=== PATIENT | female | born 1935 | race Caucasian/White ===

== ENCOUNTER 2019-04-05 12:53 | Emergency (ER) | payer MEDICARE, OTHER ==
[~2019-04-05] VITALS: Ht 160 cm; Wt 97.7 kg
[2019-04-05 13:45] VITALS: BP 153/86
[2019-04-05 13:46] LABS: BASOPHILS # (AUTO) 0.1 X10'3 (0-0.2); BASOPHILS % (AUTO) 0.9 % (0-1); EOSINOPHILS # (AUTO) 0.1 X10'3 (0-0.9); EOSINOPHILS % (AUTO) 1.2 % (0-6); HEMATOCRIT 43.3 % (35.0-45.0); HEMOGLOBIN 14.5 g/dl (12.0-16.0); LYMPHOCYTES # (AUTO) 1.2 X10'3 (1.1-4.8); LYMPHOCYTES % (AUTO) 14.7 % (21-51); MEAN CORPUSCULAR HEMOGLOBIN 30.7 PG (27.0-31.0); MEAN CORPUSCULAR HGB CONC 33.6 g/dL (33.0-36.5); MEAN CORPUSCULAR VOLUME 91.3 FL (78-98); MEAN PLATELET VOLUME 8.5 FL (7.4-10.4); MONOCYTES # (AUTO) 0.8 X10'3 (0-0.9); MONOCYTES % (AUTO) 9.3 % (2-12); NEUTROPHILS % (AUTO) 73.9 % (42-75); PLATELET COUNT 243 X10'3 (140-440); RED BLOOD COUNT 4.74 X10'6 (4.20-5.60); RED CELL DISTRIBUTION WIDTH 13.3 % (11.5-14.5); WHITE BLOOD COUNT 8.1 X10'3 (4.5-11.0)
[2019-04-05 13:56] LABS: ALANINE AMINOTRANSFERASE 18 U/L (12-78); ALBUMIN 3.6 G/DL (3.4-5.0); ALBUMIN/GLOBULIN RATIO 1.2 (1.1-1.5); ALKALINE PHOSPHATASE 109 IU/L (46-116); ANION GAP 9 (8-16); ASPARTATE AMINO TRANSFERASE 8 U/L (10-37); BLOOD UREA NITROGEN 18 MG/DL (7-18); BUN/CREATININE RATIO 24.3 (6.6-38.0); CALCIUM 8.9 MG/DL (8.5-10.1); CHLORIDE 110 MMOL/L (99-107); CREATININE 0.74 MG/DL (0.40-0.90); GLUCOSE 101 MG/DL (70-104); POTASSIUM 3.9 MMOL/L (3.5-5.1); SODIUM 145 MMOL/L (135-145); TOTAL PROTEIN 6.7 G/DL (6.4-8.2); eGFR 75 ML/MIN
[2019-04-05 14:04] LABS: PARTIAL THROMBOPLASTIN TIME 30 SECONDS (22-32)
[2019-04-05 14:59] LABS: CLARITY,URINE CLEAR (Clear); COLOR,URINE YELLOW (Yellow); GLUCOSE, URINE NEGATIVE (Neg); KETONES,URINE NEGATIVE (Neg); LEUKOCYTE ESTERASE ,URINE NEGATIVE (Neg); NITRITES, URINE NEGATIVE (Neg); OCCULT BLOOD,URINE MODERATE (Neg); PROTEIN,URINE NEGATIVE (Neg); UROBILINOGEN,URINE 0.2 E.U/dL (0.2-1.0)
[2019-04-05 15:03] LABS: UA COLLECTION TYPE NON-SPECIFIED
[2019-04-05 15:04] LABS: BACTERIA,URINE NONE SEEN /HPF (Neg); MUCUS STRANDS NONE SEEN /LPF (Neg); RBC,URINE 0-2 /HPF (0-2); SQUAMOUS EPITHELIAL CELL,UR FEW /LPF (FEW); WBC,URINE NONE SEEN /HPF (0-4)
[2019-04-05] MEDS ORDERED: enoxaparin 100mg/ml syringe SUBCUT ONE (15:40)
[2019-04-05] MEDS ORDERED: diltiazem 30mg tablet PO ONE (15:40)
[2019-04-05] MEDS ORDERED: ATOR20TA66 PO (15:55)
[2019-04-05] MEDS ORDERED: AMLO-93 PO (15:55)
[2019-04-05] MEDS ORDERED: LISI40TA4 PO (15:55)
[2019-04-05] MEDS ORDERED: DOXA4TAB3 PO (15:55)
[2019-04-05] MEDS ORDERED: UBIQ100C3 PO (15:55)
[2019-04-05] MEDS ORDERED: SOTA80TA73 PO (16:27)
[2019-04-05] MEDS ORDERED: APIX5TAB3 PO (16:27)
== END 2019-04-05 16:59 | disposition home or self-care (01) ==
LOC: ER 12:53
DX: I48.91 Unspecified atrial fibrillation (principal); R60.0 Localized edema; E78.00 Pure hypercholesterolemia, unspecified; I10 Essential (primary) hypertension; Z79.899 Other long term (current) drug therapy
CPT/HCPCS: 36415; 71045; 80053; 81001; 83880; 84145; 84484; 85025; 85610; 85730; 93005; 96372; 99284; J1650

== ENCOUNTER → 2020-06-25 | Outpatient (CLI) | payer MEDICARE, OTHER ==
[~2020-06-25] MED LIST: AMLO-93 PO; AMLO5TAB21 PO; APIX5TAB3 PO; ATOR20TA66 PO; DOXA4TAB3 PO; LISI40TA4 PO; MULT-645 PO; SOTA80TA73 PO; UBIQ100C3 PO
== END | disposition home or self-care (01) ==
LOC: VAS 08:52
PROVIDERS: ATTEND Internal Medicine Cardiovascular Disease
DX: I65.23 Occlusion and stenosis of bilateral carotid arteries (principal); I35.0 Nonrheumatic aortic (valve) stenosis; I70.0 Atherosclerosis of aorta; E04.2 Nontoxic multinodular goiter; J98.11 Atelectasis; J98.4 Other disorders of lung; I51.7 Cardiomegaly; M19.012 Primary osteoarthritis, left shoulder; M19.011 Primary osteoarthritis, right shoulder; M47.819 Spondylosis without myelopathy or radiculopathy, site unspecified; N28.1 Cyst of kidney, acquired; Z90.710 Acquired absence of both cervix and uterus
CPT/HCPCS: 71045; 71275; 74174; 93880; A9575

== ENCOUNTER 2020-06-28 14:39 | Day surgery (SDC) | payer MEDICARE, OTHER ==
[2020-06-24 12:27] LABS: BASOPHILS # (AUTO) 0.1 X10'3 (0-0.2); BASOPHILS % (AUTO) 1.2 % (0-1); EOSINOPHILS # (AUTO) 0.1 X10'3 (0-0.9); EOSINOPHILS % (AUTO) 1.2 % (0-6); HEMATOCRIT 46.9 % (35.0-45.0); HEMOGLOBIN 15.5 g/dl (12.0-16.0); LYMPHOCYTES # (AUTO) 1.6 X10'3 (1.1-4.8); LYMPHOCYTES % (AUTO) 19.8 % (21-51); MEAN CORPUSCULAR HEMOGLOBIN 30.5 PG (27.0-31.0); MEAN CORPUSCULAR VOLUME 92.6 FL (78-98); MEAN PLATELET VOLUME 8.6 FL (7.4-10.4); MONOCYTES # (AUTO) 0.7 X10'3 (0-0.9); MONOCYTES % (AUTO) 9.2 % (2-12); NEUTROPHILS # (AUTO) 5.5 X10'3 (1.8-7.7); NEUTROPHILS % (AUTO) 68.6 % (42-75); PLATELET COUNT 239 X10'3 (140-440); RED BLOOD COUNT 5.07 X10'6 (4.20-5.60); RED CELL DISTRIBUTION WIDTH 13.4 % (11.5-14.5)
[2020-06-24 12:30] LABS: ALBUMIN 3.8 G/DL (3.4-5.0); ANION GAP 7 (8-16); BLOOD UREA NITROGEN 13 MG/DL (7-18); BUN/CREATININE RATIO 16.9 (6.6-38.0); CALCIUM 9.9 MG/DL (8.5-10.1); CHLORIDE 110 MMOL/L (99-107); CREATININE 0.77 MG/DL (0.40-0.90); GLUCOSE 120 MG/DL (70-104); POTASSIUM 4.3 MMOL/L (3.5-5.1); SODIUM 145 MMOL/L (135-145); TOTAL CARBON DIOXIDE 28.3 MMOL/L (24-32); eGFR 72 ML/MIN
[2020-06-24 12:32] LABS: PARTIAL THROMBOPLASTIN TIME 30 SECONDS (22-32)
[2020-06-28] VITALS (8 sets, daily range): BP systolic 129–153; BP diastolic 52–88
[~2020-06-28] VITALS: Ht 157.5 cm; Wt 98.3 kg
[~2020-06-28 14:39] MED LIST changes: -AMLO5TAB21 PO; -MULT-645 PO; +iohexol 350 MG/ML 50ML vial IV ONE; +iohexol 350MG/ML 100ml bottle IV ONE
[2020-06-28] MEDS ORDERED: MULT-645 PO (15:00)
[2020-06-28] MEDS ORDERED: normal saline 1,000 ML IV SCH (15:10)
[2020-06-28] MEDS ORDERED: LORazepam 0.5 MG tablet PO PRN (15:10)
[2020-06-28] MEDS ORDERED: diphenhydrAMINE 25mg capsule PO PRN (15:10)
[2020-06-28] MEDS ORDERED: LIDOcaine/PRILOcaine 5gm cream TP ONE (15:35)
[2020-06-28] MEDS ORDERED: iohexol 350MG/ML 100ml bottle IV ONE (16:09)
[2020-06-28] MEDS ORDERED: heparin 1,000unit/ml 10ml vial 10 ML ONE (16:09)
[2020-06-28] MEDS ORDERED: nitroGLYCERIN-Tridil 50MG/D5W 250 ML IV ONE (16:09)
[2020-06-28] MEDS ORDERED: LIDOcaine 1% (10mg/ml)w/preservative injection 20ml MDV ONE (16:09)
[2020-06-28] MEDS ORDERED: verapamil 2.5 mg/ml inj IV ONE (16:09)
[2020-06-28] MEDS ORDERED: midazolam 2 mg/2 ml injection ONE (17:08)
[2020-06-28] MEDS ORDERED: fentaNYL/PF 50MCG/1 ML 2ML syringe ONE (17:08)
[2020-06-28] MEDS ORDERED: iohexol 350 MG/ML 50ML vial IV ONE (17:31)
[2020-06-28] MEDS ORDERED: HYDROcodone/acetaminophen 10/325mg tab PO PRN (18:00)
[2020-06-28] MEDS ORDERED: AMLO5TAB21 PO (18:00)
[2020-06-28] MEDS ORDERED: nitroGLYCERIN 0.4mg SUBLingual tab SL PRN (18:00)
[2020-06-28] MEDS ORDERED: HYDROcodone/acetaminophen 5mg/325mg tablet PO PRN (18:00)
[2020-06-28] MEDS ORDERED: OXAZEpam 15mg capsule PO PRN (18:00)
[2020-06-28] MEDS ORDERED: ondansetron/PF 4mg/2ml inj IV PRN (18:00)
[2020-06-28] MEDS ORDERED: APIX5TAB3 PO (18:01)
== END 2020-06-28 20:03 | disposition home or self-care (01) ==
LOC: SSTAY O 14:39
PROVIDERS: ATTEND Student in an Organized Health Care Education/Training Program
DX: I35.0 Nonrheumatic aortic (valve) stenosis (principal); I25.10 Atherosclerotic heart disease of native coronary artery without angina pectoris; I48.91 Unspecified atrial fibrillation; E78.5 Hyperlipidemia, unspecified; I65.23 Occlusion and stenosis of bilateral carotid arteries; I11.9 Hypertensive heart disease without heart failure; Z79.899 Other long term (current) drug therapy; Z79.01 Long term (current) use of anticoagulants
CPT/HCPCS: 36415; 80048; 85025; 85610; 85730; 93005; 93454; 99152; 99153; C1769; C1894; J1644; J2001; J2250; J3010; J7030; Q0163; Q9967; A4620; A5120; J3490

== ENCOUNTER 2020-07-12 10:45 | Outpatient (CLI) | payer MEDICARE, OTHER ==
[~2020-07-12 10:45] MED LIST changes: -AMLO-93 PO; +AMLO5TAB21 PO; +MULT-645 PO; -SOTA80TA73 PO; -UBIQ100C3 PO; -iohexol 350 MG/ML 50ML vial IV ONE; -iohexol 350MG/ML 100ml bottle IV ONE
== END 2020-07-12 23:59 | disposition home or self-care (01) ==
LOC: RT 10:45
PROVIDERS: ATTEND Internal Medicine Cardiovascular Disease
DX: I35.0 Nonrheumatic aortic (valve) stenosis (principal); R06.02 Shortness of breath; I65.29 Occlusion and stenosis of unspecified carotid artery
CPT/HCPCS: 94010; 94727; 94729

== ENCOUNTER 2020-08-26 15:14 | Outpatient (CLI) | payer MEDICARE, OTHER ==
[~2020-08-26] VITALS: Ht 157.5 cm; Wt 98.9 kg
[~2020-08-26 15:14] MED LIST changes: -MULT-645 PO
--- NOTE | 2020-08-26 19:04 | NUR ---
Juanita Mariee attended [facility] clinic for 30 day f/u. KCCQ12 and walk test completed. EKG performed in clinic.
[2020-08-26 19:07] VITALS: BP 129/61
[2020-08-26 19:09] VITALS: BP 135/70
== END 2020-08-26 23:59 | disposition home or self-care (01) ==
LOC: TAVR 15:14
PROVIDERS: ATTEND Internal Medicine Cardiovascular Disease
DX: I48.91 Unspecified atrial fibrillation (principal); I44.4 Left anterior fascicular block; Z48.812 Encounter for surgical aftercare following surgery on the circulatory system; Z95.2 Presence of prosthetic heart valve
CPT/HCPCS: 93005

== ENCOUNTER 2021-07-24 12:28 | Inpatient (IN) | payer MEDICARE, OTHER ==
[~2021-07-24] VITALS: Ht 160 cm; Wt 95.1 kg
[~2021-07-24 12:28] MED LIST changes: -AMLO5TAB21 PO; +ASPI-1071 PO; +CHLO25TA10 PO; +COR3.125T PO; +LEVO25TA7 PO; +LISI40TA13 PO; -LISI40TA4 PO
[2021-07-24] MEDS ORDERED: furosemide 10 MG/1 ML 10ml inj IV ONE (12:55)
[2021-07-24] MEDS ORDERED: ipratropium/albuterol 3ml nebule NEB ONE (12:55)
[2021-07-24 13:25] LABS: BASOPHILS # (AUTO) 0.1 X10'3 (0-0.2); BASOPHILS % (AUTO) 0.7 % (0-1); EOSINOPHILS # (AUTO) 0.1 X10'3 (0-0.9); EOSINOPHILS % (AUTO) 0.9 % (0-6); HEMATOCRIT 44.2 % (35.0-45.0); HEMOGLOBIN 14.9 g/dl (12.0-16.0); LYMPHOCYTES # (AUTO) 0.7 X10'3 (1.1-4.8); LYMPHOCYTES % (AUTO) 8.9 % (21-51); MEAN CORPUSCULAR HGB CONC 33.7 g/dL (33.0-36.5); MEAN CORPUSCULAR VOLUME 91.8 FL (78-98); MEAN PLATELET VOLUME 8.4 FL (7.4-10.4); MONOCYTES # (AUTO) 0.8 X10'3 (0-0.9); MONOCYTES % (AUTO) 10.3 % (2-12); NEUTROPHILS # (AUTO) 6.4 X10'3 (1.8-7.7); NEUTROPHILS % (AUTO) 79.2 % (42-75); PLATELET COUNT 234 X10'3 (140-440); RED BLOOD COUNT 4.82 X10'6 (4.20-5.60); RED CELL DISTRIBUTION WIDTH 13.6 % (11.5-14.5); WHITE BLOOD COUNT 8.1 X10'3 (4.5-11.0)
[2021-07-24 13:32] LABS: PARTIAL THROMBOPLASTIN TIME 32 SECONDS (22-32)
[2021-07-24 13:43] LABS: ALANINE AMINOTRANSFERASE 26 U/L (12-78); ALBUMIN 3.2 G/DL (3.4-5.0); ALBUMIN/GLOBULIN RATIO 0.9 (1.1-1.5); ALKALINE PHOSPHATASE 197 IU/L (46-116); ASPARTATE AMINO TRANSFERASE 22 U/L (10-37); BILIRUBIN,TOTAL 1.5 MG/DL (0.1-1.0); BLOOD UREA NITROGEN 18 MG/DL (7-18); BUN/CREATININE RATIO 18.9 (6.6-38.0); CALCIUM 9.1 MG/DL (8.5-10.1); CREATININE 0.95 MG/DL (0.40-0.90); GLUCOSE 156 MG/DL (70-104); POTASSIUM 3.3 MMOL/L (3.5-5.1); TOTAL CARBON DIOXIDE 33.4 MMOL/L (24-32); TOTAL PROTEIN 6.6 G/DL (6.4-8.2); eGFR 56 ML/MIN
[2021-07-24 13:49] LABS: ANION GAP 6 (8-16); CHLORIDE 102 MMOL/L (99-107); SODIUM 141 MMOL/L (135-145)
[2021-07-24] MEDS ORDERED: iohexol 350MG/ML 100ml bottle IV ONE (14:09)
[2021-07-24 14:11] LABS: D-DIMER 4.39 MG/L FEU (0-0.50)
[2021-07-24] MEDS ORDERED: CARV-49 PO (16:02)
[2021-07-24] MEDS ORDERED: FURO-149 PO (16:02)
[2021-07-24] MEDS ORDERED: LEVO25TA7 PO (16:02)
[2021-07-24] MEDS ORDERED: LISI20TA28 PO (16:03)
[2021-07-24] MEDS ORDERED: potassium CL 10mEq/100ml bag 100 ML IV PRN (16:25)
[2021-07-24] MEDS ORDERED: PERFLUTREN PROTEIN-A MICROSPHR (Optison) 0.22 MG/ML 3ML VIAL IV ONE (16:25)
[2021-07-24] MEDS ORDERED: mag hydrox/Alum hydrox/simeth 30ml oral suspension PO PRN (16:25)
[2021-07-24] MEDS ORDERED: acetaminophen 325mg tablet PO PRN ×2 (16:25)
[2021-07-24] MEDS ORDERED: acetaminophen 650mg rectal suppository RC PRN (16:25)
[2021-07-24] MEDS ORDERED: potassium Cl 20 mEq SR tablet PO PRN (16:25)
[2021-07-24] MEDS ORDERED: magnesium 4gm in 100ml NS 100 ML IV PRN (16:25)
[2021-07-24] MEDS ORDERED: magnesium hydroxide 30ml (MOM) UD suspension PO PRN (16:25)
[2021-07-24] MEDS ORDERED: ondansetron/PF 4mg/2ml inj IV PRN (16:25)
[2021-07-24] MEDS ORDERED: magnesium 2GM in 50ml NS 50 ML IV PRN (16:25)
[2021-07-24] MEDS ORDERED: magnesium Cl slow-release 64mg tablet PO PRN (16:25)
[2021-07-24] MEDS ORDERED: HYDROcodone/acetaminophen 5mg/325mg tablet PO PRN (16:25)
[2021-07-24] MEDS ORDERED: HYDROcodone/acetaminophen 10/325mg tab PO PRN (16:25)
[2021-07-24] MEDS ORDERED: bisacodyl 10mg suppository rectal RC PRN (16:25)
[2021-07-24 17:13] LABS: POTASSIUM 3.1 MMOL/L (3.5-5.1)
--- NOTE | 2021-07-24 19:08 | NUR ---
PT HAD DINNER TRAY DELIVERED. PT HAS NO COMPLAINTS AT PRESENT. HAS REQUESTED ICE CHIPS.
[2021-07-24] MEDS: furosemide 20 MG/2 ML vial IV SCH (20:48)
[2021-07-24] MEDS: atorvastatin 20mg tablet PO SCH (20:48)
[2021-07-24] MEDS: carvedilol 6.25mg tablet PO SCH (20:48)
[2021-07-24] MEDS: potassium Cl 20 mEq SR tablet PO PRN (20:49)
[2021-07-24] MEDS: K and/or MAG REPLACEMENT MC SCH (20:49)
[2021-07-24] MEDS: docusate sod 100mg capsule PO SCH (20:49)
[2021-07-24] MEDS ORDERED: temazepam 15mg capsule PO PRN (21:00)
[2021-07-24 23:30] VITALS: BP 127/55
[2021-07-25] MEDS: potassium Cl 20 mEq SR tablet PO PRN ×3 (00:31→20:17)
[2021-07-25 02:00] VITALS: BP 114/55
[2021-07-25 06:00] VITALS: BP 113/57
[2021-07-25 07:34] LABS: ALANINE AMINOTRANSFERASE 23 U/L (12-78); ALKALINE PHOSPHATASE 175 IU/L (46-116); ANION GAP 11 (8-16); ASPARTATE AMINO TRANSFERASE 21 U/L (10-37); BILIRUBIN,TOTAL 1.4 MG/DL (0.1-1.0); BLOOD UREA NITROGEN 15 MG/DL (7-18); BUN/CREATININE RATIO 17.2 (6.6-38.0); CALCIUM 8.8 MG/DL (8.5-10.1); CHLORIDE 103 MMOL/L (99-107); CREATININE 0.87 MG/DL (0.40-0.90); GLUCOSE 108 MG/DL (70-104); POTASSIUM 3.3 MMOL/L (3.5-5.1); SODIUM 143 MMOL/L (135-145); eGFR 62 ML/MIN
[2021-07-25] MEDS: K and/or MAG REPLACEMENT MC SCH ×2 (08:00→20:19)
[2021-07-25] MEDS: lisinopril 20mg tablet PO SCH (08:07)
[2021-07-25] MEDS: furosemide 20 MG/2 ML vial IV SCH ×2 (08:08→20:19)
[2021-07-25] MEDS: docusate sod 100mg capsule PO SCH ×2 (08:08→20:19)
[2021-07-25] MEDS: levoTHYROXINE 25mcg tablet PO SCH (08:08)
[2021-07-25] MEDS: carvedilol 6.25mg tablet PO SCH ×2 (08:08→20:17)
[2021-07-25 08:20] LABS: BASOPHILS # (AUTO) 0.1 X10'3 (0-0.2); BASOPHILS % (AUTO) 1.1 % (0-1); EOSINOPHILS # (AUTO) 0.1 X10'3 (0-0.9); EOSINOPHILS % (AUTO) 1.4 % (0-6); HEMATOCRIT 44.4 % (35.0-45.0); HEMOGLOBIN 14.9 g/dl (12.0-16.0); LYMPHOCYTES % (AUTO) 14.3 % (21-51); MEAN CORPUSCULAR HEMOGLOBIN 30.8 PG (27.0-31.0); MEAN CORPUSCULAR HGB CONC 33.7 g/dL (33.0-36.5); MEAN CORPUSCULAR VOLUME 91.6 FL (78-98); MEAN PLATELET VOLUME 8.3 FL (7.4-10.4); MONOCYTES % (AUTO) 13.6 % (2-12); NEUTROPHILS % (AUTO) 69.6 % (42-75); PLATELET COUNT 233 X10'3 (140-440); RED BLOOD COUNT 4.85 X10'6 (4.20-5.60); RED CELL DISTRIBUTION WIDTH 13.6 % (11.5-14.5); WHITE BLOOD COUNT 7.2 X10'3 (4.5-11.0)
[2021-07-25 10:53] VITALS: BP 159/73
[2021-07-25 11:00] VITALS: BP_SYST 106; BP_SYST 145; BP_DIAS 57; BP_DIAS 62
[2021-07-25 18:00] VITALS: BP 155/88
[2021-07-25] MEDS: atorvastatin 20mg tablet PO SCH (20:17)
[2021-07-25 22:00] VITALS: BP 127/48
[2021-07-26] MEDS: potassium Cl 20 mEq SR tablet PO PRN (00:20)
[2021-07-26 02:00] VITALS: BP 98/40
[2021-07-26 06:00] VITALS: BP 117/46
[2021-07-26] MEDS: carvedilol 6.25mg tablet PO SCH ×2 (07:39→20:23)
[2021-07-26] MEDS: lisinopril 20mg tablet PO SCH (07:39)
[2021-07-26] MEDS: docusate sod 100mg capsule PO SCH ×2 (07:41→20:00)
[2021-07-26] MEDS: furosemide 20 MG/2 ML vial IV SCH ×2 (07:41→20:23)
[2021-07-26] MEDS: levoTHYROXINE 25mcg tablet PO SCH (07:41)
[2021-07-26] MEDS: K and/or MAG REPLACEMENT MC SCH ×2 (07:44→20:00)
[2021-07-26 07:47] LABS: BASOPHILS # (AUTO) 0.1 X10'3 (0-0.2); BASOPHILS % (AUTO) 1.3 % (0-1); EOSINOPHILS # (AUTO) 0.1 X10'3 (0-0.9); EOSINOPHILS % (AUTO) 1.8 % (0-6); HEMATOCRIT 43.6 % (35.0-45.0); HEMOGLOBIN 14.5 g/dl (12.0-16.0); LYMPHOCYTES # (AUTO) 1.1 X10'3 (1.1-4.8); LYMPHOCYTES % (AUTO) 14.5 % (21-51); MEAN CORPUSCULAR HEMOGLOBIN 30.7 PG (27.0-31.0); MEAN CORPUSCULAR HGB CONC 33.4 g/dL (33.0-36.5); MEAN CORPUSCULAR VOLUME 92.1 FL (78-98); MEAN PLATELET VOLUME 8.6 FL (7.4-10.4); MONOCYTES # (AUTO) 1.1 X10'3 (0-0.9); NEUTROPHILS # (AUTO) 5.2 X10'3 (1.8-7.7); NEUTROPHILS % (AUTO) 67.4 % (42-75); PLATELET COUNT 203 X10'3 (140-440); RED BLOOD COUNT 4.73 X10'6 (4.20-5.60); RED CELL DISTRIBUTION WIDTH 14.1 % (11.5-14.5); WHITE BLOOD COUNT 7.7 X10'3 (4.5-11.0)
[2021-07-26 08:14] LABS: PLATELET ESTIMATE NORMAL; TOTAL CELLS COUNTED 100
[2021-07-26 08:26] LABS: ALANINE AMINOTRANSFERASE 23 U/L (12-78); ALBUMIN 2.9 G/DL (3.4-5.0); ALBUMIN/GLOBULIN RATIO 0.9 (1.1-1.5); ALKALINE PHOSPHATASE 169 IU/L (46-116); ANION GAP 6 (8-16); ASPARTATE AMINO TRANSFERASE 19 U/L (10-37); BILIRUBIN,TOTAL 1.3 MG/DL (0.1-1.0); BLOOD UREA NITROGEN 15 MG/DL (7-18); BUN/CREATININE RATIO 15.3 (6.6-38.0); CALCIUM 9.2 MG/DL (8.5-10.1); CHLORIDE 106 MMOL/L (99-107); CREATININE 0.98 MG/DL (0.40-0.90); GLUCOSE 105 MG/DL (70-104); POTASSIUM 3.8 MMOL/L (3.5-5.1); SODIUM 145 MMOL/L (135-145); TOTAL CARBON DIOXIDE 33.3 MMOL/L (24-32); eGFR 54 ML/MIN
[2021-07-26 11:00] VITALS: BP 113/49
--- NOTE | 2021-07-26 13:47 | NUR ---
relieving RN for lunch, pt is sitting on bed, talking on phone, resp even and unlabored,
[2021-07-26 15:00] VITALS: BP 106/52
[2021-07-26 18:00] VITALS: BP 146/59
--- NOTE | 2021-07-26 18:30 | NUR ---
Patient in room PCU 3014. I have received report from Bruce LARSEN and had the opportunity to ask questions and assume patient care.
[2021-07-26] MEDS: atorvastatin 20mg tablet PO SCH (20:23)
[2021-07-26 22:15] VITALS: BP 131/43
[2021-07-27 03:11] VITALS: BP 115/53
[2021-07-27 06:00] VITALS: BP 120/54
--- NOTE | 2021-07-27 06:28 | NUR ---
Problems reprioritized. Patient report given, questions answered & plan of care reviewed with Ely LARSEN.
[2021-07-27 07:08] LABS: BASOPHILS # (AUTO) 0.1 X10'3 (0-0.2); BASOPHILS % (AUTO) 1.5 % (0-1); EOSINOPHILS # (AUTO) 0.1 X10'3 (0-0.9); EOSINOPHILS % (AUTO) 1.9 % (0-6); HEMATOCRIT 44.1 % (35.0-45.0); HEMOGLOBIN 14.7 g/dl (12.0-16.0); LYMPHOCYTES # (AUTO) 1.3 X10'3 (1.1-4.8); LYMPHOCYTES % (AUTO) 17.5 % (21-51); MEAN CORPUSCULAR HEMOGLOBIN 30.8 PG (27.0-31.0); MEAN CORPUSCULAR HGB CONC 33.4 g/dL (33.0-36.5); MEAN PLATELET VOLUME 8.5 FL (7.4-10.4); MONOCYTES # (AUTO) 0.9 X10'3 (0-0.9); MONOCYTES % (AUTO) 12.3 % (2-12); NEUTROPHILS # (AUTO) 4.9 X10'3 (1.8-7.7); NEUTROPHILS % (AUTO) 66.8 % (42-75); PLATELET COUNT 189 X10'3 (140-440); RED BLOOD COUNT 4.79 X10'6 (4.20-5.60); RED CELL DISTRIBUTION WIDTH 13.9 % (11.5-14.5); WHITE BLOOD COUNT 7.3 X10'3 (4.5-11.0)
[2021-07-27] MEDS: carvedilol 6.25mg tablet PO SCH (07:14)
[2021-07-27] MEDS: levoTHYROXINE 25mcg tablet PO SCH (07:14)
[2021-07-27] MEDS: furosemide 20 MG/2 ML vial IV SCH ×2 (07:15→19:30)
[2021-07-27] MEDS: lisinopril 20mg tablet PO SCH (07:15)
[2021-07-27] MEDS: docusate sod 100mg capsule PO SCH ×2 (07:17→19:29)
[2021-07-27 07:31] LABS: ALANINE AMINOTRANSFERASE 17 U/L (12-78); ALKALINE PHOSPHATASE 157 IU/L (46-116); ASPARTATE AMINO TRANSFERASE 16 U/L (10-37); BILIRUBIN,TOTAL 1.1 MG/DL (0.1-1.0); BLOOD UREA NITROGEN 19 MG/DL (7-18); BUN/CREATININE RATIO 21.1 (6.6-38.0); CALCIUM 9.2 MG/DL (8.5-10.1); CHLORIDE 105 MMOL/L (99-107); GLUCOSE 103 MG/DL (70-104); POTASSIUM 3.5 MMOL/L (3.5-5.1); SODIUM 142 MMOL/L (135-145); TOTAL PROTEIN 5.9 G/DL (6.4-8.2); eGFR 60 ML/MIN
[2021-07-27 07:47] LABS: ANION GAP 7 (8-16); TOTAL CARBON DIOXIDE 30.2 MMOL/L (24-32)
[2021-07-27] MEDS: K and/or MAG REPLACEMENT MC SCH ×2 (08:00→20:00)
[2021-07-27 09:07] LABS: ALBUMIN 2.9 G/DL (3.4-5.0)
[2021-07-27 11:00] VITALS: BP 101/48
[2021-07-27] MEDS ORDERED: mag hydrox/Alum hydrox/simeth 30ml oral suspension PO PRN (12:20)
[2021-07-27 15:00] VITALS: BP 120/56
[2021-07-27 18:00] VITALS: BP 115/60
--- NOTE | 2021-07-27 18:32 | NUR ---
Problems reprioritized. Patient report given, questions answered & plan of care reviewed with Abbey LARSEN.
[2021-07-27] MEDS: carVEDilol 3.125mg tablet PO SCH (19:28)
[2021-07-27] MEDS: apixaban 5mg tablet PO SCH (19:29)
[2021-07-27] MEDS: atorvastatin 20mg tablet PO SCH (20:37)
[2021-07-27 22:00] VITALS: BP 123/51
[2021-07-28 02:00] VITALS: BP 114/59
--- NOTE | 2021-07-28 06:44 | NUR ---
Problems reprioritized. Patient report given, questions answered & plan of care reviewed with Alana LARSEN .
--- NOTE | 2021-07-28 06:49 | NUR ---
Patient in room PCU 3014. I have received report from Abbey LARSEN and had the opportunity to ask questions and assume patient care.
[2021-07-28 07:00] VITALS: BP 118/58
[2021-07-28 07:02] LABS: BASOPHILS # (AUTO) 0.1 X10'3 (0-0.2); BASOPHILS % (AUTO) 0.8 % (0-1); EOSINOPHILS # (AUTO) 0.2 X10'3 (0-0.9); EOSINOPHILS % (AUTO) 2.7 % (0-6); HEMATOCRIT 43.2 % (35.0-45.0); HEMOGLOBIN 14.6 g/dl (12.0-16.0); LYMPHOCYTES # (AUTO) 1.3 X10'3 (1.1-4.8); LYMPHOCYTES % (AUTO) 17.5 % (21-51); MEAN CORPUSCULAR HGB CONC 33.7 g/dL (33.0-36.5); MEAN PLATELET VOLUME 8.8 FL (7.4-10.4); MONOCYTES % (AUTO) 14.2 % (2-12); NEUTROPHILS # (AUTO) 4.7 X10'3 (1.8-7.7); NEUTROPHILS % (AUTO) 64.8 % (42-75); PLATELET COUNT 192 X10'3 (140-440); RED CELL DISTRIBUTION WIDTH 13.6 % (11.5-14.5); WHITE BLOOD COUNT 7.3 X10'3 (4.5-11.0)
[2021-07-28 07:39] LABS: ALANINE AMINOTRANSFERASE 18 U/L (12-78); ALBUMIN 2.9 G/DL (3.4-5.0); ALKALINE PHOSPHATASE 152 IU/L (46-116); ANION GAP 3 (8-16); ASPARTATE AMINO TRANSFERASE 18 U/L (10-37); BILIRUBIN,TOTAL 1.2 MG/DL (0.1-1.0); BLOOD UREA NITROGEN 19 MG/DL (7-18); BUN/CREATININE RATIO 22.1 (6.6-38.0); CHLORIDE 105 MMOL/L (99-107); CREATININE 0.86 MG/DL (0.40-0.90); GLUCOSE 96 MG/DL (70-104); POTASSIUM 3.5 MMOL/L (3.5-5.1); SODIUM 141 MMOL/L (135-145); TOTAL CARBON DIOXIDE 32.9 MMOL/L (24-32); TOTAL PROTEIN 5.8 G/DL (6.4-8.2); eGFR 63 ML/MIN
[2021-07-28] MEDS: K and/or MAG REPLACEMENT MC SCH (08:00)
[2021-07-28] MEDS: furosemide 20 MG/2 ML vial IV SCH (08:24)
[2021-07-28] MEDS: docusate sod 100mg capsule PO SCH (08:24)
[2021-07-28] MEDS: apixaban 5mg tablet PO SCH (08:24)
[2021-07-28] MEDS: levoTHYROXINE 25mcg tablet PO SCH (08:24)
[2021-07-28] MEDS: carVEDilol 3.125mg tablet PO SCH (08:25)
--- NOTE | 2021-07-28 10:17 | NUR ---
Initial: Pt presented with c/o SOB and pedal edema and admit for CHF with bilat pleural effusion. Pt s/p thoracentesis 07/25 with 800 mL fluid removed per report. Pt on a heart healthy diet with a 2 L fluid restriction and eating well for age with average 63% PO intake throughout [facility] 07/28, receiving routine bowel care. No nutrition intervention implemented at this time. Will continue to follow and make recommendations as appropriate. Recommendations: 1) Continue heart healthy diet with 2 L fluid restriction per MD; advance to regular diet as medically indicated in view of geriatric age 2) Routine bowel care 3) Daily scaled weights per rx Addendum: 07/28/21 at [address] Amended: Links added.
[2021-07-28] MEDS ORDERED: COR3.125T PO (12:04)
[2021-07-28] MEDS ORDERED: FURO-149 PO (12:04)
[2021-07-28] MEDS ORDERED: lisinopril 20mg tablet PO SCH (20:00)
== END 2021-07-28 13:50 | disposition home health service (06) | DRG 291 ==
LOC: ER 12:28 → ED HOLD 16:28 → EDBEDREQ 21:27 → PCU 3S 23:30
PROVIDERS: ADMIT Family Medicine; ATTEND Family Medicine
PROC: B32T1ZZ Computerized Tomography (CT Scan) of Left Pulmonary Artery using Low Osmolar Contrast (ICD-10-PCS; 2021-07-24)
PROC: B3201ZZ Computerized Tomography (CT Scan) of Thoracic Aorta using Low Osmolar Contrast (ICD-10-PCS; 2021-07-24)
PROC: B32S1ZZ Computerized Tomography (CT Scan) of Right Pulmonary Artery using Low Osmolar Contrast (ICD-10-PCS; 2021-07-24)
PROC: B4201ZZ Computerized Tomography (CT Scan) of Abdominal Aorta using Low Osmolar Contrast (ICD-10-PCS; 2021-07-24)
PROC: B4241ZZ Computerized Tomography (CT Scan) of Superior Mesenteric Artery using Low Osmolar Contrast (ICD-10-PCS; 2021-07-24)
PROC: B4281ZZ Computerized Tomography (CT Scan) of Bilateral Renal Arteries using Low Osmolar Contrast (ICD-10-PCS; 2021-07-24)
PROC: B42C1ZZ Computerized Tomography (CT Scan) of Pelvic Arteries using Low Osmolar Contrast (ICD-10-PCS; 2021-07-24)
PROC: B42H1ZZ Computerized Tomography (CT Scan) of Bilateral Lower Extremity Arteries using Low Osmolar Contrast (ICD-10-PCS; 2021-07-24)
PROC: B4211ZZ Computerized Tomography (CT Scan) of Celiac Artery using Low Osmolar Contrast (ICD-10-PCS; 2021-07-24)
PROC: 0W9B3ZZ Drainage of Left Pleural Cavity, Percutaneous Approach (ICD-10-PCS; principal; 2021-07-25)
DX: I11.0 Hypertensive heart disease with heart failure (principal); I50.23 Acute on chronic systolic (congestive) heart failure; N17.0 Acute kidney failure with tubular necrosis; I31.3 Pericardial effusion (noninflammatory); J91.8 Pleural effusion in other conditions classified elsewhere; I48.91 Unspecified atrial fibrillation; E87.6 Hypokalemia; E03.9 Hypothyroidism, unspecified; E78.00 Pure hypercholesterolemia, unspecified; Z20.822 Contact with and (suspected) exposure to COVID-19; I49.5 Sick sinus syndrome; R53.81 Other malaise; E78.5 Hyperlipidemia, unspecified; I25.10 Atherosclerotic heart disease of native coronary artery without angina pectoris; Z79.01 Long term (current) use of anticoagulants; Z85.820 Personal history of malignant melanoma of skin; Z90.711 Acquired absence of uterus with remaining cervical stump; Z95.0 Presence of cardiac pacemaker; Z95.2 Presence of prosthetic heart valve; Z90.49 Acquired absence of other specified parts of digestive tract; Z79.899 Other long term (current) drug therapy
CPT/HCPCS: 32555; 36415; 71045; 71275; 74177; 76700; 80053; 83735; 83880; 84132; 84439; 84443; 84480; 84484; 85007; 85025; 85379; 85610; 85730; 87081; 87635; 93005; 93306; 94640; 94760; 96374; 97116; 97161; 97530; 99285; G0378; J1940; Q9967

== ENCOUNTER 2021-10-04 08:28 | Day surgery (SDC) | payer MEDICARE, OTHER ==
[~2021-10-04] VITALS: Ht 157.5 cm; Wt 88.9 kg
[~2021-10-04 08:28] MED LIST changes: -ASPI-1071 PO; -CHLO25TA10 PO; -DOXA4TAB3 PO; +FURO-149 PO; -LISI40TA13 PO
[2021-10-04] MEDS ORDERED: albumin 25% 100mL bottle x 1 IV PRN (08:50)
[2021-10-04 08:53] VITALS: BP 113/64
[2021-10-04] MEDS ORDERED: LEVO50CA4 PO (09:01)
[2021-10-04] MEDS ORDERED: FURO-150 PO (09:01)
[2021-10-04] MEDS ORDERED: CARV3.122 PO (09:01)
[2021-10-04] MEDS ORDERED: POTA-192 PO (09:19)
[2021-10-04] MEDS ORDERED: SOTA80TA73 PO (09:19)
[2021-10-04 10:08] VITALS: BP 136/62
[2021-10-04 10:24] VITALS: BP 141/73
[2021-10-04 10:38] VITALS: BP 161/66
[2021-10-04 11:00] VITALS: BP 144/58
== END 2021-10-04 11:20 | disposition home or self-care (01) ==
LOC: SSTAY O 08:28
PROVIDERS: ATTEND Radiology Vascular & Interventional Radiology
DX: J90 Pleural effusion, not elsewhere classified (principal); I50.9 Heart failure, unspecified; I48.91 Unspecified atrial fibrillation; I10 Essential (primary) hypertension; I65.29 Occlusion and stenosis of unspecified carotid artery; Z85.828 Personal history of other malignant neoplasm of skin; Z85.820 Personal history of malignant melanoma of skin; Z20.822 Contact with and (suspected) exposure to COVID-19; Z90.49 Acquired absence of other specified parts of digestive tract; Z98.890 Other specified postprocedural states; Z95.0 Presence of cardiac pacemaker; Z79.899 Other long term (current) drug therapy; Z79.01 Long term (current) use of anticoagulants
CPT/HCPCS: 32555; 87635; C9803

== ENCOUNTER 2021-10-28 10:04 | Outpatient (CLI) | payer MEDICARE, OTHER ==
[~2021-10-28 10:04] MED LIST changes: +CARV3.122 PO; -COR3.125T PO; -FURO-149 PO; +FURO-150 PO; -LEVO25TA7 PO; +LEVO50CA4 PO; +POTA-192 PO; +SOTA80TA73 PO
[2021-10-28 11:21] LABS: BASOPHILS # (AUTO) 0.1 X10'3 (0-0.2); BASOPHILS % (AUTO) 1.1 % (0-1); EOSINOPHILS # (AUTO) 0.2 X10'3 (0-0.9); EOSINOPHILS % (AUTO) 2.5 % (0-6); HEMATOCRIT 46.1 % (35.0-45.0); HEMOGLOBIN 15.3 g/dl (12.0-16.0); LYMPHOCYTES # (AUTO) 1.2 X10'3 (1.1-4.8); LYMPHOCYTES % (AUTO) 15.8 % (21-51); MEAN CORPUSCULAR HGB CONC 33.1 g/dL (33.0-36.5); MEAN CORPUSCULAR VOLUME 90.6 FL (78-98); MONOCYTES # (AUTO) 0.7 X10'3 (0-0.9); MONOCYTES % (AUTO) 8.9 % (2-12); NEUTROPHILS # (AUTO) 5.3 X10'3 (1.8-7.7); NEUTROPHILS % (AUTO) 71.7 % (42-75); PLATELET COUNT 193 X10'3 (140-440); RED BLOOD COUNT 5.09 X10'6 (4.20-5.60); RED CELL DISTRIBUTION WIDTH 14.7 % (11.5-14.5); WHITE BLOOD COUNT 7.5 X10'3 (4.5-11.0)
[2021-10-28 11:27] LABS: APTT 30 SECONDS (22-32)
[2021-10-28 11:35] LABS: ALBUMIN 3.4 G/DL (3.4-5.0); ANION GAP 9 (8-16); BLOOD UREA NITROGEN 18 MG/DL (7-18); BUN/CREATININE RATIO 26.5 (6.6-38.0); CHLORIDE 109 MMOL/L (99-107); CREATININE 0.68 MG/DL (0.40-0.90); GLUCOSE 140 MG/DL (70-104); POTASSIUM 3.7 MMOL/L (3.5-5.1); SODIUM 148 MMOL/L (135-145); TOTAL CARBON DIOXIDE 29.7 MMOL/L (24-32); eGFR 82 ML/MIN
[2021-10-28 12:25] LABS: ALANINE AMINOTRANSFERASE 18 U/L (12-78); ALKALINE PHOSPHATASE 166 IU/L (46-116); ASPARTATE AMINO TRANSFERASE 16 U/L (10-37); BILIRUBIN,TOTAL 1.4 MG/DL (0.1-1.0); TOTAL PROTEIN 6.7 G/DL (6.4-8.2)
[2021-10-28 13:12] LABS: HEMOGLOBIN A1C 6.3 % (4.5-6.2)
== END 2021-10-28 23:59 | disposition home or self-care (01) ==
LOC: LAB 10:04
PROVIDERS: ATTEND Internal Medicine
DX: I10 Essential (primary) hypertension (principal); D53.9 Nutritional anemia, unspecified; E03.9 Hypothyroidism, unspecified; R73.9 Hyperglycemia, unspecified
CPT/HCPCS: 36415; 80053; 83036; 83880; 84443; 85025; 85610; 85730

== ENCOUNTER 2021-11-03 12:09 | Day surgery (SDC) | payer MEDICARE, OTHER ==
[~2021-11-03] VITALS: Ht 157.5 cm; Wt 89.6 kg
[2021-11-03] VITALS (12 sets, daily range): BP systolic 118–146; BP diastolic 51–88
[2021-11-03] MEDS ORDERED: LORazepam 0.5 MG tablet PO PRN (12:25)
[2021-11-03] MEDS ORDERED: normal saline 1,000 ML IV SCH (12:25)
[2021-11-03] MEDS ORDERED: diphenhydrAMINE 25mg capsule PO PRN (12:25)
[2021-11-03] MEDS ORDERED: FURO40TA4 PO (12:59)
[2021-11-03] MEDS ORDERED: METO-384 PO (12:59)
[2021-11-03] MEDS ORDERED: fentaNYL/PF 50MCG/1 ML 2ML syringe ONE (13:12)
[2021-11-03] MEDS ORDERED: iohexol 350MG/ML 100ml bottle IV ONE (13:12)
[2021-11-03] MEDS ORDERED: midazolam 1 mg/ML 2ml injection ONE (13:12)
[2021-11-03] MEDS ORDERED: LIDOcaine 1% (10mg/ml)w/preservative inj. 20ml MDV ONE (13:12)
[2021-11-03] MEDS ORDERED: nitroGLYCERIN-Tridil 50MG/D5W 250 ML IV ONE (13:12)
[2021-11-03] MEDS ORDERED: verapamil 2.5 mg/ml inj IV ONE (13:12)
[2021-11-03] MEDS ORDERED: heparin 1,000unit/ml 10ml vial 10 ML ONE (13:12)
[2021-11-03] MEDS ORDERED: iohexol 350 MG/ML 50ML vial IV ONE ×2 (14:18→14:22)
== END 2021-11-03 17:49 | disposition home or self-care (01) ==
LOC: SSTAY O 12:09
PROVIDERS: ATTEND Internal Medicine Interventional Cardiology
DX: R07.89 Other chest pain (principal); R06.02 Shortness of breath; I11.9 Hypertensive heart disease without heart failure; I48.91 Unspecified atrial fibrillation; I35.0 Nonrheumatic aortic (valve) stenosis; E78.5 Hyperlipidemia, unspecified; Z79.01 Long term (current) use of anticoagulants; Z79.899 Other long term (current) drug therapy
CPT/HCPCS: 93005; 93458; 93567; 99152; 99153; C1760; C1769; C1894; J1644; J2250; J3010; J3490; J7030; Q0163; Q9967; A4620; A5120; A6258

== ENCOUNTER 2021-11-14 09:12 | Emergency (ER) | payer MEDICARE, OTHER ==
[~2021-11-14] VITALS: Ht 157.5 cm; Wt 89.5 kg
[~2021-11-14 09:12] MED LIST changes: -CARV3.122 PO; +FURO40TA4 PO; +METO-384 PO; -SOTA80TA73 PO
[2021-11-14 10:01] LABS: BASOPHILS # (AUTO) 0.1 X10'3 (0-0.2); BASOPHILS % (AUTO) 0.9 % (0-1); EOSINOPHILS # (AUTO) 0.1 X10'3 (0-0.9); EOSINOPHILS % (AUTO) 1.8 % (0-6); HEMATOCRIT 46.7 % (35.0-45.0); HEMOGLOBIN 15.5 g/dl (12.0-16.0); LYMPHOCYTES % (AUTO) 12.5 % (21-51); MEAN CORPUSCULAR HEMOGLOBIN 29.7 PG (27.0-31.0); MEAN CORPUSCULAR HGB CONC 33.1 g/dL (33.0-36.5); MEAN CORPUSCULAR VOLUME 89.5 FL (78-98); MEAN PLATELET VOLUME 8.3 FL (7.4-10.4); MONOCYTES # (AUTO) 0.6 X10'3 (0-0.9); NEUTROPHILS % (AUTO) 76.8 % (42-75); PLATELET COUNT 219 X10'3 (140-440); RED BLOOD COUNT 5.22 X10'6 (4.20-5.60); RED CELL DISTRIBUTION WIDTH 14.3 % (11.5-14.5); WHITE BLOOD COUNT 7.9 X10'3 (4.5-11.0)
[2021-11-14 10:09] LABS: ALANINE AMINOTRANSFERASE 20 U/L (12-78); ALBUMIN 3.5 G/DL (3.4-5.0); ALBUMIN/GLOBULIN RATIO 1.1 (1.1-1.5); ALKALINE PHOSPHATASE 186 IU/L (46-116); ANION GAP 8 (8-16); ASPARTATE AMINO TRANSFERASE 16 U/L (10-37); BILIRUBIN,TOTAL 1.7 MG/DL (0.1-1.0); BLOOD UREA NITROGEN 16 MG/DL (7-18); BUN/CREATININE RATIO 21.1 (6.6-38.0); CALCIUM 9.6 MG/DL (8.5-10.1); CHLORIDE 104 MMOL/L (99-107); CREATININE 0.76 MG/DL (0.40-0.90); GLUCOSE 156 MG/DL (70-104); POTASSIUM 4.1 MMOL/L (3.5-5.1); SODIUM 141 MMOL/L (135-145); TOTAL CARBON DIOXIDE 29.5 MMOL/L (24-32); TOTAL PROTEIN 6.8 G/DL (6.4-8.2); eGFR 72 ML/MIN
[2021-11-14] MEDS ORDERED: furosemide 10 MG/1 ML 10ml inj IM ONE (11:00)
[2021-11-14 11:31] VITALS: BP 140/59
== END 2021-11-14 11:49 | disposition home or self-care (01) ==
LOC: ER 09:12
DX: I11.0 Hypertensive heart disease with heart failure (principal); I50.9 Heart failure, unspecified; E78.00 Pure hypercholesterolemia, unspecified; Z88.8 Allergy status to other drugs, medicaments and biological substances; Z79.899 Other long term (current) drug therapy; Z98.890 Other specified postprocedural states
CPT/HCPCS: 36415; 71045; 80053; 83880; 84484; 85025; 93005; 96372; 99285; J1940

== ENCOUNTER 2022-03-22 09:52 | Outpatient (CLI) | payer MEDICARE, OTHER ==
[~2022-03-22] VITALS: Ht 157.5 cm; Wt 88.5 kg
[2022-03-22 10:25] LABS: TOTAL HEMOGLOBIN 15.3 G/dl (12.0-16.0)
[2022-03-22] MEDS ORDERED: albuterol 2.5 MG/3 ML nebule NEB PRN (10:55)
== END 2022-03-22 23:59 | disposition home or self-care (01) ==
LOC: RT 09:52
PROVIDERS: ATTEND Internal Medicine
DX: R94.2 Abnormal results of pulmonary function studies (principal); J98.4 Other disorders of lung; I48.91 Unspecified atrial fibrillation; Z79.899 Other long term (current) drug therapy
CPT/HCPCS: 85018; 94060; 94727; 94729; 94760

== ENCOUNTER 2023-05-30 09:24 | Outpatient (CLI) | payer MEDICARE, OTHER ==
[~2023-05-30 09:24] MED LIST changes: +BUME1TAB8 PO; -FURO-150 PO; -FURO40TA4 PO; +UBID200C37 PO
[2023-05-30 10:07] LABS: BASOPHILS # (AUTO) 0.1 X10'3 (0-0.2); BASOPHILS % (AUTO) 0.6 % (0-1); EOSINOPHILS # (AUTO) 0.2 X10'3 (0-0.9); HEMATOCRIT 44.1 % (35.0-45.0); HEMOGLOBIN 14.9 g/dl (12.0-16.0); LYMPHOCYTES # (AUTO) 1.2 X10'3 (1.1-4.8); LYMPHOCYTES % (AUTO) 14.3 % (21-51); MEAN CORPUSCULAR HEMOGLOBIN 30.8 PG (27.0-31.0); MEAN CORPUSCULAR HGB CONC 33.7 g/dL (33.0-36.5); MEAN CORPUSCULAR VOLUME 91.4 FL (78-98); MEAN PLATELET VOLUME 8.4 FL (7.4-10.4); MONOCYTES # (AUTO) 0.7 X10'3 (0-0.9); NEUTROPHILS # (AUTO) 6.5 X10'3 (1.8-7.7); NEUTROPHILS % (AUTO) 75.1 % (42-75); PLATELET COUNT 271 X10'3 (140-440); RED BLOOD COUNT 4.82 X10'6 (4.20-5.60); RED CELL DISTRIBUTION WIDTH 13.1 % (11.5-14.5); WHITE BLOOD COUNT 8.6 X10'3 (4.5-11.0)
[2023-05-30 10:14] LABS: APTT 31 SECONDS (22-32); INR 1.1 INR; PROTHROMBIN TIME 11.5 SECONDS (9.0-12.0)
[2023-05-30 10:49] LABS: ALANINE AMINOTRANSFERASE 27 U/L (12-78); ALBUMIN 3.6 G/DL (3.4-5.0); ALKALINE PHOSPHATASE 176 IU/L (46-116); ANION GAP 5 (8-16); ASPARTATE AMINO TRANSFERASE 21 U/L (10-37); BILIRUBIN,TOTAL 1.1 MG/DL (0.1-1.0); BLOOD UREA NITROGEN 19 MG/DL (7-18); BUN/CREATININE RATIO 18.8 (10.0-20.0); CALCIUM 9.8 MG/DL (8.5-10.1); CHLORIDE 104 MMOL/L (99-107); CREATININE 1.01 MG/DL (0.40-0.90); GLUCOSE 145 MG/DL (70-104); POTASSIUM 3.6 MMOL/L (3.5-5.1); PRO BRAIN NATRIURETIC PEPTIDE 3775 PG/ML (0-450); SODIUM 141 MMOL/L (135-145); TOTAL CARBON DIOXIDE 32.5 MMOL/L (24-32); TOTAL PROTEIN 7.3 G/DL (6.4-8.2); eGFR 52 ML/MIN
[2023-05-30] MEDS ORDERED: IODIXANOL 320 MG/ML INFUS..BTL 100ML IV ONE (11:03)
== END 2023-05-30 23:59 | disposition home or self-care (01) ==
LOC: RAD 09:24
PROVIDERS: ATTEND Internal Medicine Cardiovascular Disease
DX: N28.1 Cyst of kidney, acquired (principal); K57.30 Diverticulosis of large intestine without perforation or abscess without bleeding; I70.0 Atherosclerosis of aorta; I25.3 Aneurysm of heart; I51.7 Cardiomegaly; M47.815 Spondylosis without myelopathy or radiculopathy, thoracolumbar region; R59.9 Enlarged lymph nodes, unspecified; I35.0 Nonrheumatic aortic (valve) stenosis; R06.02 Shortness of breath; Z90.6 Acquired absence of other parts of urinary tract; Z90.49 Acquired absence of other specified parts of digestive tract; Z95.2 Presence of prosthetic heart valve
CPT/HCPCS: 36415; 71275; 74174; 75572; 80053; 83880; 85025; 85610; 85730; J3490; Q9967

== ENCOUNTER 2023-06-07 10:25 | Day surgery (SDC) | payer MEDICARE, OTHER ==
[2023-06-07] VITALS (8 sets, daily range): BP systolic 127–152; BP diastolic 41–54; PULSE 70–84; RESP 14–17; TEMP 98; O2SAT 95–99
[~2023-06-07] VITALS: Ht 157.5 cm; Wt 93.9 kg
[2023-06-07] MEDS ORDERED: diphenhydrAMINE 25mg capsule PO PRN (11:10)
[2023-06-07] MEDS ORDERED: normal saline 1,000 ML IV SCH (11:10)
[2023-06-07] MEDS ORDERED: LORazepam 0.5 MG tablet PO PRN (11:10)
[2023-06-07 11:27] LABS: BASOPHILS # (AUTO) 0.1 X10'3 (0-0.2); BASOPHILS % (AUTO) 0.9 % (0-1); EOSINOPHILS # (AUTO) 0.2 X10'3 (0-0.9); EOSINOPHILS % (AUTO) 1.8 % (0-6); HEMATOCRIT 44.4 % (35.0-45.0); HEMOGLOBIN 14.7 g/dl (12.0-16.0); LYMPHOCYTES # (AUTO) 1.1 X10'3 (1.1-4.8); LYMPHOCYTES % (AUTO) 12.6 % (21-51); MEAN CORPUSCULAR HEMOGLOBIN 30.5 PG (27.0-31.0); MEAN CORPUSCULAR HGB CONC 33.1 g/dL (33.0-36.5); MEAN CORPUSCULAR VOLUME 91.9 FL (78-98); MEAN PLATELET VOLUME 8.4 FL (7.4-10.4); MONOCYTES # (AUTO) 0.8 X10'3 (0-0.9); MONOCYTES % (AUTO) 8.8 % (2-12); NEUTROPHILS # (AUTO) 6.7 X10'3 (1.8-7.7); NEUTROPHILS % (AUTO) 75.9 % (42-75); PLATELET COUNT 204 X10'3 (140-440); RED BLOOD COUNT 4.83 X10'6 (4.20-5.60); RED CELL DISTRIBUTION WIDTH 13.6 % (11.5-14.5); WHITE BLOOD COUNT 8.8 X10'3 (4.5-11.0)
[2023-06-07 11:38] LABS: ALBUMIN 3.8 G/DL (3.4-5.0); ANION GAP 7 (8-16); BLOOD UREA NITROGEN 17 MG/DL (7-18); BUN/CREATININE RATIO 19.8 (10.0-20.0); CALCIUM 9.7 MG/DL (8.5-10.1); CHLORIDE 104 MMOL/L (99-107); CREATININE 0.86 MG/DL (0.40-0.90); GLUCOSE 118 MG/DL (70-104); POTASSIUM 3.9 MMOL/L (3.5-5.1); SODIUM 143 MMOL/L (135-145); TOTAL CARBON DIOXIDE 32.2 MMOL/L (24-32); eCRCL 37 ML/MIN; eGFR 63 ML/MIN
[2023-06-07] MEDS ORDERED: LIDOcaine 1% (10mg/ml)w/preservative inj. 20ml MDV ONE (13:16)
[2023-06-07] MEDS ORDERED: midazolam 1 mg/ML 2ml injection ONE (13:16)
[2023-06-07] MEDS ORDERED: fentaNYL/PF 50MCG/1 ML 2ML syringe ONE (13:16)
[2023-06-07] MEDS ORDERED: heparin 1,000unit/ml 10ml vial 10 ML ONE (13:17)
[2023-06-07] MEDS ORDERED: iohexol 350MG/ML 100ml bottle IV ONE (13:17)
[2023-06-07] MEDS ORDERED: iohexol 350 MG/ML 50ML vial IV ONE (14:43)
[2023-06-07] MEDS ORDERED: HYDROcodone/acetaminophen 10/325mg tab PO PRN (15:45)
[2023-06-07] MEDS ORDERED: HYDROcodone/acetaminophen 5mg/325mg tablet PO PRN (15:45)
[2023-06-11 07:01] LABS: ISTAT HGB MIX 12.9 g/dl (12.0-16.0); ISTAT Hct MIX 38 %PCV (35-45); ISTAT O2 SATURATION MIX VENOUS 64 % (60-80); ISTAT SOURCE BLNK
[2023-06-11 07:02] LABS: ISTAT HGB ART 12.6 g/dl (12.0-16.0); ISTAT Hct ART 37 %PCV (35-45); ISTAT O2 SATURATION ARTERIAL 93 % (95-98); ISTAT SOURCE BLNK
== END 2023-06-07 17:30 | disposition home or self-care (01) ==
LOC: SSTAY O 10:25
PROVIDERS: ATTEND Internal Medicine Cardiovascular Disease
DX: I35.0 Nonrheumatic aortic (valve) stenosis (principal); E03.9 Hypothyroidism, unspecified; E78.5 Hyperlipidemia, unspecified; I50.9 Heart failure, unspecified; I48.0 Paroxysmal atrial fibrillation; Z79.01 Long term (current) use of anticoagulants; Z79.890 Hormone replacement therapy; Z79.899 Other long term (current) drug therapy; Z91.041 Radiographic dye allergy status
CPT/HCPCS: 36415; 80048; 82803; 85014; 85025; 85610; 93005; 93460; 93567; 99152; 99153; J1644; J2250; J3010; J3490; J7030; Q0163; Q9967; A6258; C1751; C1760

== ENCOUNTER 2024-08-26 15:06 | Emergency (ER) | payer MEDICARE, OTHER ==
[~2024-08-26] VITALS: Ht 157.5 cm; Wt 96.4 kg
[2024-08-26 15:49] LABS: BASOPHILS # (AUTO) 0.1 X10'3 (0-0.2); BASOPHILS % (AUTO) 0.8 % (0-1); EOSINOPHILS # (AUTO) 0.2 X10'3 (0-0.9); EOSINOPHILS % (AUTO) 2.2 % (0-6); HEMATOCRIT 44.3 % (35.0-45.0); HEMOGLOBIN 14.9 g/dl (12.0-16.0); LYMPHOCYTES # (AUTO) 1.2 X10'3 (1.1-4.8); LYMPHOCYTES % (AUTO) 14.2 % (21-51); MEAN CORPUSCULAR HEMOGLOBIN 30.3 PG (27.0-31.0); MEAN CORPUSCULAR HGB CONC 33.6 g/dL (33.0-36.5); MEAN CORPUSCULAR VOLUME 90.2 FL (78-98); MEAN PLATELET VOLUME 8.7 FL (7.4-10.4); MONOCYTES # (AUTO) 0.8 X10'3 (0-0.9); MONOCYTES % (AUTO) 9.4 % (2-12); NEUTROPHILS # (AUTO) 6.1 X10'3 (1.8-7.7); NEUTROPHILS % (AUTO) 73.4 % (42-75); PLATELET COUNT 191 X10'3 (140-440); WHITE BLOOD COUNT 8.4 X10'3 (4.5-11.0)
[2024-08-26 16:08] LABS: ALANINE AMINOTRANSFERASE 20 U/L (12-78); ALBUMIN 3.6 G/DL (3.4-5.0); ALBUMIN/GLOBULIN RATIO 1.2 (1.1-1.5); ALKALINE PHOSPHATASE 171 IU/L (46-116); ANION GAP 6 (8-16); ASPARTATE AMINO TRANSFERASE 13 U/L (10-37); BILIRUBIN,TOTAL 0.9 MG/DL (0.1-1.0); BLOOD UREA NITROGEN 15 MG/DL (7-18); CALCIUM 9.6 MG/DL (8.5-10.1); CHLORIDE 108 MMOL/L (99-107); CREATININE 0.79 MG/DL (0.40-0.90); GLUCOSE 114 MG/DL (70-104); LIPASE 56 U/L (16-77); POTASSIUM 4.5 MMOL/L (3.5-5.1); SODIUM 142 MMOL/L (135-145); TOTAL CARBON DIOXIDE 28.4 MMOL/L (24-32); TOTAL PROTEIN 6.5 G/DL (6.4-8.2); eCRCL 40 ML/MIN; eGFR 69 ML/MIN
[2024-08-26] MEDS ORDERED: morphine 4 MG/ML inj SYRINge IV ONE (17:15)
[2024-08-26] MEDS ORDERED: ondansetron/PF 4mg/2ml inj IV ONE (17:15)
[2024-08-26 17:31] LABS: BILIRUBIN,URINE NEGATIVE (Neg); CLARITY,URINE CLEAR (Clear); COLOR,URINE YELLOW (Yellow); GLUCOSE, URINE NEGATIVE (Neg); KETONES,URINE NEGATIVE (Neg); LEUKOCYTE ESTERASE ,URINE NEGATIVE (Neg); NITRITES, URINE NEGATIVE (Neg); OCCULT BLOOD,URINE TRACE-INTACT (Neg); PROTEIN,URINE NEGATIVE (Neg); UROBILINOGEN,URINE 0.2 E.U/dL (0.2-1.0)
[2024-08-26 17:32] LABS: UA COLLECTION TYPE NON-SPECIFIED
[2024-08-26 17:45] LABS: SQUAMOUS EPITHELIAL CELL,UR MANY /LPF (FEW)
[2024-08-26 17:49] LABS: BACTERIA,URINE 1+ /HPF (Neg); RBC,URINE 0-2 /HPF (0-2); WBC,URINE NONE SEEN /HPF (0-4)
[2024-08-26] MEDS ORDERED: PRED50TA PO (18:31)
[2024-08-26] MEDS: ketorolac trometh 15mg/ml vial 15 MG/ML ML IV ONE (18:34)
[2024-08-26] MEDS: cloNIDine 0.1 mg tablet PO ONE (18:46)
[2024-08-26 18:49] VITALS: BP 204/91; PULSE 72; RESP 16; TEMP 98.6; O2SAT 97
== END 2024-08-26 18:57 | disposition home or self-care (01) ==
LOC: ER 15:06
DX: M54.50 Low back pain, unspecified (principal); I11.0 Hypertensive heart disease with heart failure; I50.9 Heart failure, unspecified; E78.00 Pure hypercholesterolemia, unspecified; Z90.49 Acquired absence of other specified parts of digestive tract
CPT/HCPCS: 36415; 74176; 80053; 81001; 83690; 85025; 96374; 99285; J1885

== ENCOUNTER 2024-11-19 09:36 | Emergency (ER) | payer MEDICARE, OTHER ==
[~2024-11-19] VITALS: Ht 165.1 cm; Wt 96.0 kg
[~2024-11-19 09:36] MED LIST changes: -LEVO50CA4 PO; +LEVO50CA5 PO; +PRED50TA PO
[2024-11-19 10:21] LABS: BASOPHILS # (AUTO) 0.1 X10'3 (0-0.2); BASOPHILS % (AUTO) 1.2 % (0-1); EOSINOPHILS # (AUTO) 0.3 X10'3 (0-0.9); EOSINOPHILS % (AUTO) 3.1 % (0-6); HEMATOCRIT 46.4 % (35.0-45.0); HEMOGLOBIN 15.5 g/dl (12.0-16.0); LYMPHOCYTES # (AUTO) 1.2 X10'3 (1.1-4.8); LYMPHOCYTES % (AUTO) 14.9 % (21-51); MEAN CORPUSCULAR HEMOGLOBIN 29.9 PG (27.0-31.0); MEAN CORPUSCULAR HGB CONC 33.4 g/dL (33.0-36.5); MEAN CORPUSCULAR VOLUME 89.5 FL (78-98); MEAN PLATELET VOLUME 9.2 FL (7.4-10.4); MONOCYTES # (AUTO) 0.8 X10'3 (0-0.9); MONOCYTES % (AUTO) 10.3 % (2-12); NEUTROPHILS # (AUTO) 5.7 X10'3 (1.8-7.7); NEUTROPHILS % (AUTO) 70.5 % (42-75); PLATELET COUNT 171 X10'3 (140-440); RED BLOOD COUNT 5.18 X10'6 (4.20-5.60); WHITE BLOOD COUNT 8.2 X10'3 (4.5-11.0)
[2024-11-19 10:37] LABS: ALANINE AMINOTRANSFERASE 17 U/L (12-78); ALBUMIN 3.6 G/DL (3.4-5.0); ALBUMIN/GLOBULIN RATIO 1.2 (1.1-1.5); ALKALINE PHOSPHATASE 169 IU/L (46-116); ANION GAP 6 (8-16); ASPARTATE AMINO TRANSFERASE 19 U/L (10-37); BILIRUBIN,TOTAL 1.2 MG/DL (0.1-1.0); BLOOD UREA NITROGEN 19 MG/DL (7-18); BUN/CREATININE RATIO 24.7 (10.0-20.0); CALCIUM 9.2 MG/DL (8.5-10.1); CHLORIDE 106 MMOL/L (99-107); CREATININE 0.77 MG/DL (0.40-0.90); GLUCOSE 123 MG/DL (70-104); SODIUM 144 MMOL/L (135-145); TOTAL CARBON DIOXIDE 32.5 MMOL/L (24-32); TOTAL PROTEIN 6.7 G/DL (6.4-8.2); eCRCL 45 ML/MIN; eGFR 71 ML/MIN
[2024-11-19 10:45] LABS: PRO BRAIN NATRIURETIC PEPTIDE 1759 PG/ML (0-450)
[2024-11-19 13:40] VITALS: TEMP 97.9
[2024-11-19 16:15] VITALS: BP 153/56; PULSE 70; RESP 16; O2SAT 97
== END 2024-11-19 16:16 | disposition home or self-care (01) ==
LOC: ER 09:36
DX: R07.9 Chest pain, unspecified (principal); E78.00 Pure hypercholesterolemia, unspecified; I11.0 Hypertensive heart disease with heart failure; I50.9 Heart failure, unspecified; I48.91 Unspecified atrial fibrillation; Z88.8 Allergy status to other drugs, medicaments and biological substances; Z90.49 Acquired absence of other specified parts of digestive tract; Z95.0 Presence of cardiac pacemaker; Z95.2 Presence of prosthetic heart valve
CPT/HCPCS: 36415; 71045; 80053; 83880; 84484; 85025; 93005; 99285